=== PATIENT | male | born 1995 | race Caucasian/White ===

== ENCOUNTER 2023-04-17 23:11 | Emergency (ER) | payer MEDICAID, SELFPAY ==
[2023-04-17 23:19] VITALS: BP 147/95; PULSE 68; RESP 18; TEMP 37.1; O2SAT 100; BMI 23.7
--- NOTE | 2023-04-17 23:25 | W.ED.ABDPA2 ---
HPI - Abdominal Pain General: Chief Complaint: Abdominal Pain Stated Complaint: abd pain Time Seen by Provider: 04/17/23 23:24 History of Present Illness: 8-year-old male patient comes in today with right flank pain. Patient reports pain started this morning but has worsened throughout the day. Patient appears nontoxic. Patient appears in moderate to severe pain. Patient denies any history of renal stone. Patient reports no fever. Patient has had some nausea and 1 episode of emesis due to pain. Review of Systems General: Reports: 10 or more systems reviewed and unremarkable except in HPI and below : Reports: flank pain Physical Exam Const: COMMON NORMALS: alert HENMT: COMMON NORMALS: normocephalic HEAD & SCALP: normocephalic Neck/C-Spine: COMMON NORMALS: full ROM Resp: COMMON NORMALS: normal respiratory effort and clear to auscultation bilaterally AUSCULTATION: clear to auscultation bilaterally Cardio: COMMON NORMALS: regular rate and regular rhythm RATE: regular rate RHYTHM: regular rhythm GI: COMMON NORMALS: Soft to palpation and non-tender PALPATION: Yes Soft to palpation : COMMON NORMALS: Yes no CVA tenderness BLADDER/KIDNEY EXAM: Yes no CVA tenderness Back/Pelvis: COMMON NORMALS: no CVA tenderness Extremity: COMMON NORMALS: normal to inspection Neuro: SENSORIUM/ORIENTATION: Yes alert Skin: COMMON NORMALS: turgor normal GENERAL SKIN EXAM: turgor normal Course Vital Signs: Vital signs: Vital Signs Temperature 98.7 F 04/17/23 23:19 Pulse Rate 75 04/17/23 23:43 Respiratory Rate 18 04/18/23 00:18 Blood Pressure 129/75 04/17/23 23:43 Pulse Oximetry 99 04/17/23 23:43 Oxygen Delivery Me thod Room Air 04/17/23 23:43 MDM - Abdominal Pain Medical Decision Making 28-year-old male patient comes in today for complaints of right flank pain. On exam patient appears in severe pain. Abdomen soft nontender. Skin is warm and dry. Vital signs are normal except for some elevated blood pressure. Differential diagnosis includes gallbladder disease, renal calculi, UTI, pyelonephritis, appendicitis. CBC noted some mild leukocytosis at 10,000, CMP was unremarkable. Urinalysis a large amount of blood in it. CT of the abdomen pelvis noted a 3 mm distal ureteral stone on the right side. Patient was treated with 4 mg of morphine, 15 mg ketorolac, and 4 mg Zofran. Patient had relief of pain and discomfort. Patient be kept on medication for pain and discomfort and will be referred to urology for further treatment and evaluation. Case management was requested to assist with follow-up appointment. Patient reported understanding of care plan and need for follow-up or return to the ER. Lab Data 04/17/23 23:30 04/17/23 23: Labs/Radiology: Radiology Impressions Abdomen/Pelvis CT 04/17/23 23:54 IMPRESSION: There is a 3 mm calculus in the distal right ureter with obstructive changes as described above. Laboratory Results WBC 10.1 10^3/uL (4.0-10.0) H 04/17/23: RBC 4.49 10^6/uL (4.1-5.3) 04/17/23: Hgb 13.9 g/dL (11.7-16.6) 04/17/23: Hct 39.7 % (42.0-52.0) L 04/17/23: MCV 88.4 fl (80-94) 04/17/23: MCH 31.0 pg (28.0-34.0) 04/17/23: MCHC 35.0 g/dL (30.0-36.0) 04/17/23: RDW 12.1 % (12.1-15.1) 04/17/23 23: Plt Count 261 10^3/cmm (130-400) 04/17/23: MPV 9.9 fL (7.4-10.4) 04/17/23 23:30 Neut % (Auto) 63.7 % 04/17/23 23:30 Lymph % (Auto) 26.0 % 04/17/23: [place] % (Auto) 8.7 % 04/17/23: Eos % (Auto) 0.7 % 04/17/23: Baso % (Auto) 0.6 % 04/17/23 23:30 Neut # (Auto) 6.43 10^3/uL (1.8-7.7) 04/17/23: Lymph # (Auto) 2.6 10^3/uL (0.8-4.8) 04/17/23 23:30 [place] # (Auto) 0.9 10^3/uL (0.2-0.9) 04/17/23 23:30 Eos # (Auto) 0.1 10^3/uL (0.0-0.8) 04/17/23 23:30 Baso # (Auto) 0.1 10^3/uL (0.0-0.1) 04/17/23 23:30 Nucleated RBC % (auto) 0 % 04/17/23:30 Nucleated RBCs # 0.0 /100WBC 04/17/23 23:30 Sodium 141 mmol/L (136-145) 04/17/23: Potassium 4.1 mmol/L (3.5-5.1) 04/17/23 23:30 Chloride 105 mmol/L (98-107) 04/17/23 23:30 Carbon Dioxide 21 mmol/L (22-29) L 04/17/23 23:30 Anion Gap 19.1 (5-19) H 04/17/23 23:30 BUN 17 mg/dL (6-20) 04/17/23 23:30 Creatinine 1.0 mg/dL (0.7-1.2) 04/17/23 23:30 GFR Calculation 88.3 mL/min (90-130) L 04/17/23 23:30 Glucose 137 mg/dL (65-115) H 04/17/23 23:30 Calculated Osmolality 296 mOsm/kg (285-295) H 04/17/23 23:30 Calcium 9.4 mg/dL (8.5-10.5) 04/17/23 23:30 Total Bilirubin 0.8 mg/dL (0.15-1.2) 04/17/23 23:30 AST 27 U/L (0-40) 04/17/23 23:30 ALT 20 U/L (0-41) 04/17/23 23:30 Alkaline Phosphatase 68 U/L (40-130) 04/17/23 23:30 Total Protein 6.7 g/dL (6.6-8.7) 04/17/23 23: Albumin 4.5 g/dL (3.5-5.2) 04/17/23 23:30 Globulin 2.2 g/dL (1.3-4.6) 04/17/23 23:30 Lipase 16 U/L (13-60) 04/17/23 23:30 Urine Color Yellow (Yellow) 04/17/23 23:42 Urine Appearance Clear (CLEAR) 04/17/23 23:42 Urine pH 5 (5-7) 04/17/23 23:42 Ur Specific [place] 1.020 (1.005-1.030) 04/17/23 23:42 Urine Protein Neg (Negative) 04/17/23 23:42 Urine Glucose (UA) Norm (Normal) 04/17/23 23:42 Urine Ketones Negative (Negative) 04/17/23 23:42 Urine Blood 3+ (Negative) H 04/17/23 23:42 Urine Nitrate Negative (Negative) 04/17/23 23:42 Urine Bilirubin Neg (Negative) 04/17/23 23:42 Urine Urobilinogen Norm mg/dL (Negative) 04/17/23 23:42 Ur Leukocyte Esterase Negative (Negative) 04/17/23 23:42 Urine RBC 40-50 /hpf (0-2) H 04/17/23 23:42 Urine WBC 0-4 /hpf (0-5) H 04/17/23 23:42 Ur Squamous Epith Cells 0-4 /hpf (0-5) H 04/17/23 23:42 Amorphous Sediment Not Reportable 04/17/23 23:42 Urine Bacteria Trace /hpf (NONE) 04/17/23 23:42 Urine Mucus 1+ /hpf 04/17/23 23:42 Discharge Plan Discharge Patient Disposition: Home Clinical Impression: Ureteral calculus, right Condition: Stable Prescriptions: New ondansetron 4 mg tablet,disintegrating 4 mg PO Q8H PRN (Reason: nausea and vomiting) Qty: 12 0RF hydrocodone-acetaminophen 5-325 mg tablet 1 tab PO Q6H PRN (Reason: pain (scale score 7-10)) Qty: 12 0RF ketorolac 10 mg tablet 10 mg PO Q8H PRN (Reason: pain) Qty: 12 0RF Discharge Orders: Discharge ED (Routine); Ordered 04/18/23 Ordered By: Asael Maza Referrals: John Child MD [Primary Care Provider] - Discharge Diet: Usual diet Discharge Activity: Increase activity as tolerated Patient Instructions: Kidney Stones (ED), How to Strain Your Urine (ED), Opioid Safety, Pain Management Activity Restrictions/Additional Instructions: Follow-up with primary care as needed. Case management will contact you for follow-up appointment with urologist for further evaluation and treatment. Most often a stone of this size will pass on its own. Use medications as directed for pain. Ketorolac works well for kidney and smooth muscle pain. Ketorolac will not make you sleepy. Use hydrocodone for more severe pain. Use ondansetron for nausea and vomiting. Return to ER for worsening symptoms such as high fever greater than 100.4, inability to hold fluids down, or new concerns. 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
[2023-04-17 23:43] VITALS: BP 129/75; PULSE 75; RESP 18; O2SAT 99
[2023-04-17 23:46] LABS: Basophils # 0.1 10^3/uL (0.0-0.1); Basophils % 0.6 %; Eosinophils # 0.1 10^3/uL (0.0-0.8); Eosinophils % 0.7 %; Hematocrit 39.7 % (42.0-52.0); Hemoglobin 13.9 g/dL (11.7-16.6); Lymphocytes # 2.6 10^3/uL (0.8-4.8); Mean Corpuscular Volume 88.4 fl (80-94); Mean Platelet Volume 9.9 fL (7.4-10.4); Monocytes # 0.9 10^3/uL (0.2-0.9); Monocytes % 8.7 %; Neutrophils # 6.43 10^3/uL (1.8-7.7); Neutrophils % 63.7 %; Nucleated Red Blood Cells % 0 %; Platelet Count 261 10^3/cmm (130-400); Red Blood Count 4.49 10^6/uL (4.1-5.3); Red Cell Distribution Width 12.1 % (12.1-15.1); White Blood Count 10.1 10^3/uL (4.0-10.0)
--- NOTE | 2023-04-17 23:54 | CTR_ITS ---
PROCEDURE INFORMATION: Exam: CT Abdomen And Pelvis Without Contrast Exam date and time: 04/18/2023 12:30 AM Age: 28 years old Clinical indication: Abdominal pain; Right; Patient HX: C/O RT flank pain TECHNIQUE: Imaging protocol: Computed tomography of the abdomen and pelvis without contrast. Radiation optimization: All CT scans at this facility use at least one of these dose optimization techniques: automated exposure control; mA and/or kV adjustment per patient size (includes targeted exams where dose is matched to clinical indication); or iterative reconstruction. REPORTING DATA: Count of CT and Cardiac NM exams in prior 12 months: This patient has received 0 known CTs and 0 known cardiac nuclear medicine studies in the 12 months prior to the current study. COMPARISON: CR XR hip LT 2-3V wo/w pel* [id number] 11/09/2017 11:09 AM RADIATION DOSE METRICS: Total DLP (mGy-cm): 447.73 FINDINGS: Liver: Normal. No mass. Gallbladder and bile ducts: Normal. No calcified stones. No ductal dilation. Pancreas: Normal. No ductal dilation. Spleen: Normal. No splenomegaly. Adrenal glands: Normal. No mass. Kidneys and ureters: There is a 3 mm calculus in the distal right ureter. 3 mm nonobstructing calculus in the lower pole the left kidney. Mild right hydronephrosis/hydroureter with subtle right perinephric/periureteral inflammatory stranding. Stomach and bowel: Unremarkable. No obstruction. No mucosal thickening. Appendix: A normal appendix is identified. Intraperitoneal space: Unremarkable. No free air. No significant fluid collection. Vasculature: Unremarkable. No abdominal aortic aneurysm. Lymph nodes: Unremarkable. No enlarged lymph nodes. Urinary bladder: Unremarkable as visualized. Reproductive: Unremarkable as visualized. Bones/joints: Unremarkable. No acute fracture. Soft tissues: Unremarkable. CT/CT kidney stone [id number] IMPRESSION: There is a 3 mm calculus in the distal right ureter with obstructive changes as described above.
[2023-04-17 23:57] LABS: Alanine Aminotransferase 20 U/L (0-41); Albumin Level 4.5 g/dL (3.5-5.2); Alkaline Phosphatase 68 U/L (40-130); Anion Gap 19.1 (5-19); Aspartate Amino Transferase 27 U/L (0-40); Blood Urea Nitrogen 17 mg/dL (6-20); Calcium 9.4 mg/dL (8.5-10.5); Carbon Dioxide 21 mmol/L (22-29); Chloride 105 mmol/L (98-107); Globulin 2.2 g/dL (1.3-4.6); Glomerular Filtration Rate 88.3 mL/min (90-130); Glucose 137 mg/dL (65-115); Lipase 16 U/L (13-60); Osmolality Calculated 296 mOsm/kg (285-295); Potassium 4.1 mmol/L (3.5-5.1); Sodium 141 mmol/L (136-145); Total Bilirubin 0.8 mg/dL (0.15-1.2); Total Protein 6.7 g/dL (6.6-8.7)
[2023-04-17 23:59] LABS: Add Urine Microscopic? YES; Bacteria Urine TRACE /hpf; Bilirubin Urine Neg (Negative); Blood Urine 3+ (Negative); Glucose Urine UA Norm (Normal); Ketones Urine Negative (Negative); Leukocyte Esterase Urine Negative (Negative); Mucus Urine 1+ /hpf; Nitrate Urine Negative (Negative); Protein Urine Neg (Negative); RBC Urine 40-50 /hpf (0-2); Squamous Epithelial Cell Urine 0-4 /hpf (0-5); Urine Appearance Clear (CLEAR); Urine Color Yellow (Yellow); Urobilinogen Urine Norm (Negative); WBC Urine 0-4 /hpf (0-5); pH Urine 5 (5-7)
[2023-04-18] LABS: Add Urine Culture? Yes
[2023-04-18 00:18] VITALS: RESP 18
[2023-04-18] MEDS: ketorolac 30 mg/mL INJ 15 MG IVP ×2 (00:18→02:00)
[2023-04-18] MEDS: morphine 4 mg/mL SDV 1 mL IVP (00:18)
[2023-04-18] MEDS: ondansetron 2 mg/ML SDV 2 mL 4 MG IVP (00:19)
--- NOTE | 2023-04-18 01:55 | PC.NURSE ---
Verbal orders given from [facility] to give 2mg morphine IVP once and 15mg Toradol IVP once.
[2023-04-18 02:00] VITALS: RESP 18
[2023-04-18] MEDS: morphine 4 mg/mL SDV 1 mL 2 MG IVP (02:00)
[2023-04-18 02:06] VITALS: BP 129/71; PULSE 85; RESP 18; O2SAT 98
[2023-04-18 02:07] VITALS: BP 129/71; PULSE 80; RESP 18; O2SAT 98
--- NOTE | 2023-04-18 09:10 | DCPLANNER ---
patient access manager had message to schedule a follow up appointment for patient with urology. patient access manager called patient to confirm where patient would like referral sent. Patient stated that he would like it sent to [facility], window caser faxed patients information to [facility], it will be reviewed and clinic will call patient with appointment information.
== END 2023-04-18 02:14 | disposition home or self-care (01) ==
PROVIDERS: Emergency Medicine; Emergency Provider Nurse Practitioner Family; PCP Family Medicine
DX: N20.1 Calculus of ureter (principal)
CPT/HCPCS: 36415; 74176; 80053; 81001; 83690; 85025; 87086; 96374; 96375; 96376; 99285; J1885; J2270; J2405

== ENCOUNTER 2024-06-18 14:29 | Emergency (ER) | payer MEDICAID, SELFPAY ==
[2024-06-18 14:59] VITALS: BP 126/69; PULSE 64; RESP 16; TEMP 36.6; O2SAT 97; BMI 23.0
--- NOTE | 2024-06-18 15:15 | XR_ITS ---
WS: [id number] XR hand LT min 3V* [id number] REASON FOR EXAM: pinky finger smashed between cattle guard and cow FINDINGS: Soft tissue disruption at the tip of the fifth finger. No abnormality of the underlying distal phalanx of the fifth finger. Remainder of the bone and joint structure of the left hand are without abnormality. XR/XR hand LT min 3V* [id number] IMPRESSION: Soft tissue injury without underlying bone or joint abnormality.
--- NOTE | 2024-06-18 15:16 | W.ED.EXTPRO ---
Documented by User: ANABELLE Palmer 06/18/24 16:33 HPI - Extremity Problem General: Chief complaint: Extremity Injury, Upper Stated complaint: LT pinkie inj Time Seen by Provider: 06/18/24 15:12 Source: patient Mode of arrival: ambulatory Limitations: no limitations History of Present Illness: Patient is a 29-year-old male who presents to the emergency department with injury to left pinky finger onset approximately 2 hours prior to arrival. Patient was leading a cow down cattle chute when the cow suddenly backed up and smashed his hand into a cattle guard, causing the laceration. He is noting no pain at this time, stating that his left pinky finger is numb. He states his tetanus is most likely not up-to-date. There is reported injury to the nailbed, and there is no active bleeding at this time as he does arrive with bandage in place. He has not taken anything for pain at this point, is requesting something now. No other injuries reported. No other concerning symptoms. MD Complaint: other (Injury to left pinky finger/numbness) Onset (ago): hour(s) Location: left and upper extremity Radiation: none Relieving factors: nothing Exacerbating factors: nothing Associated symptoms: Reports no associated symptoms; Deny chest pain, fever(s) or rash Related Data Previous Rx's Medication Instructions Recorded hydrocodone 5 mg-acetaminophen 325 1 tab PO Q6H PRN pain (scale score 04/18/23 mg tablet 7-10) #12 tabs ketorolac 10 mg tablet 10 mg PO Q8H PRN pain #12 tabs 04/18/23 ondansetron 4 mg disintegrating 4 mg PO Q8H PRN nausea and 04/18/23 tablet vomiting #12 tabs cephalexin 500 mg capsule 500 mg PO BID 7 days #14 caps 06/18/24 Allergies Allergy/AdvReac Type Severity Reaction Status Date / Time No Known Allergies Allergy Verified 06/18/24 15:10 Review of Systems General: Reports: 10 or more systems reviewed and unremarkable except in HPI and below Const: Denies: fever(s) or chills Card: Denies: chest pain Resp: Denies: dyspnea GI: Denies: abdominal pain, nausea, vomiting or diarrhea Musc: Denies: extremity pain, extremity swelling, joint pain, joint swelling or joint redness Skin/Breast: Reports: new lesions (Laceration to left pinky finger); Denies: rash, skin pain or skin tenderness Neuro: Reports: numbness in extremities (Left pinky finger); Denies: headache(s) Physical Exam Const: COMMON NORMALS: no acute distress, average body habitus, patient oriented x3, no limitations, healthy appearing, alert and well nourished HENMT: COMMON NORMALS: normocephalic and atraumatic HEAD & SCALP: normocephalic and atraumatic Neck/C-Spine: COMMON NORMALS: full ROM, no lymphadenopathy, supple and no meningeal signs Resp: COMMON NORMALS: normal respiratory effort, No use of accessory muscles and clear to auscultation bilaterally AUSCULTATION: clear to auscultation bilaterally Cardio: COMMON NORMALS: regular rate and regular rhythm RATE: regular rate RHYTHM: regular rhythm Extremity: COMMON NORMALS: full ROM and capillary refill normal NARRATIVE EXTREMITY EXAM: There is no reproducible tenderness to palpation within the left hand, there is endorsed numbness distally. He does have full range of motion at both the PIP and DIP. Neuro: COMMON NORMALS: patient oriented x3 SENSORIUM/ORIENTATION: Yes alert MENINGEAL SIGNS: Yes no meningeal signs Skin: COMMON NORMALS: turgor normal NARRATIVE SKIN EXAM: Patient arrives with [place] wrap around left finger. Upon removal of this there is no active bleeding, there is quite a bit of dried blood obscuring the tip of the finger, there does appear to be a nailbed avulsion. GENERAL SKIN EXAM: turgor normal Course Vital Signs: Vital signs: Vital Signs Temperature 97.8 F 06/18/24 14:59 Pulse Rate 66 06/18/24 16:50 Respiratory Rate 18 06/18/24 16:50 Blood Pressure 109/72 06/18/24 16:50 Pulse Oximetry 97 06/18/24 16:50 Oxygen Delivery Me thod Room Air 06/18/24 14:59 MDM - Extremity (Nontraumatic) Medical Decision Making This patient smashed his finger in between a cow and a cattle guard, his tetanus was updated today. An x-ray was obtained that did not show any underlying bony abnormality. Initial examination of the finger showed quite a bit of clotted blood as well as injury to the nail as it did appear avulsed. After being soaked in Betadine mixed with normal saline, and then clots removed with hydrogen peroxide, wound again was reevaluated. Upon further examination there is no ability to approximate any of the wound, as most of it is appearing somewhat mangled. While the nail is avulsed, it is intact including the matrix, and this was approximated back onto the finger, and would not benefit from any further approximation from a suture through the nail. We will cover for any infection with antibiotics, and all the reasons to return were discussed including signs or symptoms of infection. Proper wound care also discussed, and his pinky is wrapped appropriately prior to discharge. Patient and patient's mother also elect for no suturing at this time. Patient will be discharged home. Lab Data Radiology Impressions Hand X-Ray 06/18/24 15:15 IMPRESSION: Soft tissue injury without underlying bone or joint abnormality. All radiology interpretation(s) finalized by discharge Discharge Plan Discharge Patient Disposition: Home Clinical Impression: Laceration of left little finger Qualifiers: Encounter type: initial encounter Damage to nail status: with damage Foreign body presence: without foreign body Qualified Code(s): S61.317A - Laceration without foreign body of left little finger with damage to nail, initial encounter Condition: Stable Prescriptions: New cephalexin 500 mg capsule 500 mg PO BID 7 Days Qty: 14 0RF No Action ondansetron 4 mg tablet,disintegrating 4 mg PO Q8H PRN (Reason: nausea and vomiting) Qty: 12 0RF hydrocodone-acetaminophen 5-325 mg tablet 1 tab PO Q6H PRN (Reason: pain (scale score 7-10)) Qty: 12 0RF ketorolac 10 mg tablet 10 mg PO Q8H PRN (Reason: pain) Qty: 12 0RF Discharge Orders: Discharge ED (Routine); Ordered 06/18/24 Ordered By: Vinh Xiao Referrals: John Child MD [Primary Care Provider] - Patient Instructions: Finger Laceration (ED) Activity Restrictions/Additional Instructions: Please take your antibiotics as prescribed. For pain, alternate Tylenol and ibuprofen and also apply ice for added relief. Please monitor the wound for any concerning signs of infection and return for reevaluation as needed. Keep the wound wrapped for the first few days, as well as keep it dry, afterwards you may dab it clean with a washcloth and soap and water, dry thoroughly, and then wrap as discussed. With any further issues or complaints, follow-up with your primary care provider. 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 [employer] Documented by User: Leonel Nicole DO 06/18/24 17:18 HPI - Extremity Problem General: Chief complaint: Extremity Injury, Upper Stated complaint: LT pinkie inj Time Seen by Provider: 06/18/24 15:12 Related Data Previous Rx's Medication Instructions Recorded hydrocodone 5 mg-acetaminophen 325 1 tab PO Q6H PRN pain (scale score 04/18/23 mg tablet 7-10) #12 tabs ketorolac 10 mg tablet 10 mg PO Q8H PRN pain #12 tabs 04/18/23 ondansetron 4 mg disintegrating 4 mg PO Q8H PRN nausea and 04/18/23 tablet vomiting #12 tabs cephalexin 500 mg capsule 500 mg PO BID 7 days #14 caps 06/18/24 Allergies Allergy/AdvReac Type Severity Reaction Status Date / Time No Known Allergies Allergy Verified 06/18/24 15:10 Course Vital Signs: Vital signs: Vital Signs Temperature 97.8 F 06/18/24 14:59 Pulse Rate 66 06/18/24 16:50 Respiratory Rate 18 06/18/24 16:50 Blood Pressure 109/72 06/18/24 16:50 Pulse Oximetry 97 06/18/24 16:50 Oxygen Delivery Me thod Room Air 06/18/24 14:59 MDM - Extremity (Nontraumatic) Medical Decision Making This patient smashed his finger in between a cow and a cattle guard, his tetanus was updated today. An x-ray was obtained that did not show any underlying bony abnormality. Initial examination of the finger showed quite a bit of clotted blood as well as injury to the nail as it did appear avulsed. After being soaked in Betadine mixed with normal saline, and then clots removed with hydrogen peroxide, wound again was reevaluated. Upon further examination there is no ability to approximate any of the wound, as most of it is appearing somewhat mangled. While the nail is avulsed, it is intact including the matrix, and this was approximated back onto the finger, and would not benefit from any further approximation from a suture through the nail. We will cover for any infection with antibiotics, and all the reasons to return were discussed including signs or symptoms of infection. Proper wound care also discussed, and his pinky is wrapped appropriately prior to discharge. Patient and patient's mother also elect for no suturing at this time. Patient will be discharged home. Chart reviewed and patient discussed with midlevel. Agree with assessment and plan. Lab Data Radiology Impressions Hand X-Ray 06/18/24 15:15 IMPRESSION: Soft tissue injury without underlying bone or joint abnormality. Discharge Plan Discharge Patient Disposition: Home Clinical Impression: Laceration of left little finger Qualifiers: Encounter type: initial encounter Damage to nail status: with damage Foreign body presence: without foreign body Qualified Code(s): S61.317A - Laceration without foreign body of left little finger with damage to nail, initial encounter Condition: Stable Prescriptions: New cephalexin 500 mg capsule 500 mg PO BID 7 Days Qty: 14 0RF No Action ondansetron 4 mg tablet,disintegrating 4 mg PO Q8H PRN (Reason: nausea and vomiting) Qty: 12 0RF hydrocodone-acetaminophen 5-325 mg tablet 1 tab PO Q6H PRN (Reason: pain (scale score 7-10)) Qty: 12 0RF ketorolac 10 mg tablet 10 mg PO Q8H PRN (Reason: pain) Qty: 12 0RF Discharge Orders: Discharge ED (Routine); Ordered 06/18/24 Ordered By: Vinh Xiao Referrals: John Child MD [Primary Care Provider] - Patient Instructions: Finger Laceration (ED) Activity Restrictions/Additional Instructions: Please take your antibiotics as prescribed. For pain, alternate Tylenol and ibuprofen and also apply ice for added relief. Please monitor the wound for any concerning signs of infection and return for reevaluation as needed. Keep the wound wrapped for the first few days, as well as keep it dry, afterwards you may dab it clean with a washcloth and soap and water, dry thoroughly, and then wrap as discussed. With any further issues or complaints, follow-up with your primary care provider. 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
[2024-06-18] MEDS: acetaminophen 500 mg Tablet 1000 MG PO (15:39)
[2024-06-18] MEDS: tetanus-dipt-pertussis 0.5 mL SDV IM (15:40)
--- NOTE | 2024-06-18 16:49 | PC.NURSE ---
Wound cleaned with sterile water/ betadine/ peroxide. Used 2 pks 4x4s. Pt tolerated well.
[2024-06-18 16:50] VITALS: BP 109/72; PULSE 66; RESP 18; O2SAT 97
== END 2024-06-18 16:53 | disposition home or self-care (01) ==
PROVIDERS: Emergency Provider Physician Assistant; PCP Family Medicine
DX: S61.317A Laceration without foreign body of left little finger with damage to nail, initial encounter (principal); W23.0XXA Caught, crushed, jammed, or pinched between moving objects, initial encounter; Z23 Encounter for immunization
CPT/HCPCS: 73130; 90471; 90715; 99283

== ENCOUNTER 2024-06-29 09:39 | Emergency (ER) | payer MEDICAID, SELFPAY ==
[2024-06-29 10:18] VITALS: BP 115/76; PULSE 62; RESP 18; TEMP 36.7; O2SAT 98; BMI 23.7
--- NOTE | 2024-06-29 10:35 | XR_ITS ---
WS: [id number] Exam: XR finger LT min 2V [id number] Date/Time of Exam: 06/29/2024 10:42 AM Reason For Exam: 5th finger/crush injury The fifth finger is targeted for radiographic evaluation. No fracture or dislocation. Extensive soft tissue injury to the distal fifth finger. No radiopaque fo reign bodies are visualized. XR/XR finger LT min 2V [id number] IMPRESSION: 1. Extensive soft tissue injury of the distal fifth finger. No bony injury iden tified.
--- NOTE | 2024-06-29 10:36 | ED_ITS ---
HPI - Extremity Problem 2 General: Chief complaint: Extremity Injury, Upper Stated complaint: pinky finger infected Time Seen by Provider: 06/29/24 10:19 History of Present Illness: 29-year-old male presents to the emergen cy room complaining of a left fifth finger that was crushed a week ago. Slightly red and inflamed. He has not had any fever sweats or chills. No lymphangitic streaking. No drainage. Patient was discharged home on cephalexin. X-ray did not show any acute abnormality there was no portion of the wound that was amenable to primary closure of laceration. Associated symptoms: Deny fever(s) Related Data Home Medications Medication Instructions Recorded Confirmed acetaminophen 325 mg tablet 650 mg PO QID PRN Pain 06/29/24 06/29/24 (Tylenol) ibuprofen 200 mg tablet (Advil) 600 mg PO Q6H PRN Pain 06/29/24 06/29/24 Previous Rx's Medication Instructions Recorded mupirocin 2 % topical ointment 1 applic topical BID #22 grams 06/29/24 sulfamethoxazole 800 1 tab PO BID 7 days #14 tabs 06/29/24 mg-trimethoprim 160 mg tablet (Bactrim DS) Allergies Allergy/AdvReac Type Severity Reaction Status Date / Time No Known Allergies Allergy Verified 06/18/24 15:10 Review of Systems 2 Const: Denies: fever(s) or chills Physical Exam 2 Narrative: EXAM NARRATIVE: Examination of the left fifth finger healing by secondary intent mild localized erythema no proximal lymphangitic spread no epitrochlear lymphadenopathy. No exposed bone. The nail appears to have a subungual hematoma. Course 2 Vital Signs: Vital signs: Vital Signs Temperature 98.1 F 06/29/24 10:18 Pulse Rate 62 06/29/24 10:18 Respiratory Rate 18 06/29/24 10:18 Blood Pressure 115/76 06/29/24 10:18 Pulse Oximetry 98 06/29/24 10:18 Oxygen Delivery Me thod Room Air 06/29/24 10:18 MDM - Extremity (Nontraumatic) Medical Decision Making X-ray does not show any changes. On exam at the bedside there is some mild cellulitis locally. Will start on topical mupirocin also start on Bactrim. Make follow-up appointment in the next few days with orthopedics. Confirmed with our case management staff they contacted the office for the orthopedic clinic and they will see him tomorrow. Lab Data 06/29/24 10:48 Radiology Impressions Finger X-Ray 06/29/24 10:35 IMPRESSION: 1. Extensive soft tissue injury of the distal fifth finger. No bony injury identified. Laboratory Results WBC 9.56 10^3/uL (3.29-11.43) 06/29/24 10:48 RBC 4.81 10^6/uL (3.85-5.65) 06/29/24 10:48 Hgb 14.50 g/dL (11.27-16.99) 06/29/24 10:48 Hct 43.7 % (37-53) 06/29/24 10:48 MCV 90.9 fl (82-101) 06/29/24 10:48 MCH 30.1 pg (27-33) 06/29/24 10:48 MCHC 33.2 g/dL (30-55) 06/29/24 10:48 RDW 12.2 % (12.1-15.1) 06/29/24 10:48 Plt Count 291 10^3/cmm (157-399) 06/29/24 10:48 MPV 9.6 fL (7.4-10.4) 06/29/24 10:48 Neut % (Auto) 70.8 % 06/29/24 10:48 Lymph % (Auto) 19.7 % 06/29/24 10:48 Bledsoe % (Auto) 7.8 % 06/29/24 10:48 Eos % (Auto) 0.8 % 06/29/24 10:48 Baso % (Auto) 0.6 % 06/29/24 10:48 Neut # (Auto) 6.76 10^3/uL (1.8-7.7) 06/29/24 10:48 Lymph # (Auto) 1.9 10^3/uL (0.8-4.8) 06/29/24 10:48 Bledsoe # (Auto) 0.8 10^3/uL (0.2-0.9) 06/29/24 10:48 Eos # (Auto) 0.1 10^3/uL (0.0-0.8) 06/29/24 10:48 Baso # (Auto) 0.1 10^3/uL (0.0-0.1) 06/29/24 10:48 Nucleated RBC % (auto) 0 % 06/29/24 10:48 Nucleated RBCs # 0.0 /100WBC 06/29/24 10:48 All radiology interpretation(s) finalized by discharge Discharge Plan Discharge Patient Disposition: Home Clinical Impression: Crushed finger, distal, Cellulitis of finger Condition: Stable Prescriptions: New sulfamethoxazole-trimethoprim [Bactrim DS] 800-160 mg tablet 1 tab PO BID 7 Days Qty: 14 0RF mupirocin 2 % ointment 1 applic topical BID Qty: 22 0RF No Action acetaminophen [Tylenol] 325 mg Tablet 650 mg PO QID PRN (Reason: Pain) ibuprofen [Advil] 200 mg Tablet 600 mg PO Q6H PRN (Reason: Pain) Discharge Orders: Discharge ED (Routine); Ordered 06/29/24 Ordered By: Leonel Nicole Referrals: Jonh Child MD [Primary Care Provider] - Discharge Diet: Usual diet Discharge Activity: Increase activity as tolerated Patient Instructions: Opioid Safety, Pain Management Activity Restrictions/Additional Instructions: Thank you for choosing [facility] for your healthcare needs today. It is very important that you follow up as instructed or that you return to the Emergency Department should you have concerns or if your condition changes or worsens in any way. You are seen today with concerns about the crush injury to your finger. X-ray did not show any significant changes. White count was not elevated. Locally it does look like you have a mild cellulitis will start you on some oral antibiotics as well as topical antibiotic. manager rehab will make arrangements for you to follow-up with orthopedics. Coding Level of Care Code ED Database Technician for [facility]
--- NOTE | 2024-06-29 10:54 | DCPLANNER ---
Message sent to Ortho for a urgent appointment
[2024-06-29 11:04] LABS: Basophils # 0.1 10^3/uL (0.0-0.1); Basophils % 0.6 %; Eosinophils # 0.1 10^3/uL (0.0-0.8); Eosinophils % 0.8 %; Hematocrit 43.7 % (37-53); Lymphocytes # 1.9 10^3/uL (0.8-4.8); Lymphocytes % 19.7 %; Mean Corpuscular HGB Conc 33.2 g/dL (30-55); Mean Corpuscular Hemoglobin 30.1 pg (27-33); Mean Corpuscular Volume 90.9 fl (82-101); Mean Platelet Volume 9.6 fL (7.4-10.4); Monocytes # 0.8 10^3/uL (0.2-0.9); Monocytes % 7.8 %; Neutrophils # 6.76 10^3/uL (1.8-7.7); Neutrophils % 70.8 %; Nucleated Red Blood Cells % 0 %; Platelet Count 291 10^3/cmm (157-399); Red Blood Count 4.81 10^6/uL (3.85-5.65); Red Cell Distribution Width 12.2 % (12.1-15.1); White Blood Count 9.56 10^3/uL (3.29-11.43)
== END 2024-06-29 13:00 | disposition home or self-care (01) ==
PROVIDERS: Emergency Provider Family Medicine; PCP Family Medicine
DX: S67.197A Crushing injury of left little finger, initial encounter (principal); L03.012 Cellulitis of left finger; X58.XXXA Exposure to other specified factors, initial encounter
CPT/HCPCS: 36415; 73140; 85025; 99283

== ENCOUNTER → 2024-07-14 15:14 | Outpatient (BNVA) | payer MEDICAID, SELFPAY | PROVIDERS: PCP Family Medicine; Visit Provider Nurse Practitioner | DX: S61.307A Unspecified open wound of left little finger with damage to nail, initial encounter (principal); Y99.9 Unspecified external cause status | CPT/HCPCS: 73130 ==